=== PATIENT | female | born 1995 | race Caucasian/White ===

== ENCOUNTER → 2021-11-07 | Outpatient (CLI) | payer BC ==
[~2021-11-07] MED LIST: CALCIUM CARBON650 M2; MOTRIN 800800 MG/TAB PO; PRENATAL TABLET PO; PROFERRIN ES12 MG PO
== END ==
LOC: DIA.ED 10-24 08:23 → DIA.EDTELE 11:50
DX: O24.419 Gestational diabetes mellitus in pregnancy, unspecified control (principal)
CPT/HCPCS: G0108

== ENCOUNTER 2021-12-14 03:39 | Inpatient (IN) | payer BC ==
[~2021-12-14] VITALS: Ht 157.5 cm; Wt 62.7 kg
[2021-12-14] VITALS (17 sets, daily range): BP systolic 110–135; BP diastolic 56–86; PULSE 77–106; TEMP 97.7–98.2
--- NOTE | 2021-12-14 05:10 | NUR ---
0345- 26 YO, , 39.5 COMES TO OB UNIT, AMBULATORY, ACCOMPANIED BY SPOUSE. PT C/O CTX. REPORTS +FM, +CTX, -LOF, -VB. 0356- EFM AND TOCO APPLIED. 0400- PT RATES PAIN 6/10 W/ CTX. AFEBRILE.VSS. SVE 5-6/80/-2 W/ A BULGING BAG. 0405- DR. PEREIRA ON THE UNIT AND GIVEN REPORT ON PT. PT IS GDM- DIET CONTROLLED. ORDERS REC'D TO ADMIT PT FOR LABOR AND CHECK BLOOD SUGARS EVERY 2 HOURS. 0434- ACCUCHECK 86 0440- CONSENTS REVIEWED AND SIGNED WITH PT AND SPOUSE. ALL QUESTIONS ANSWERED. 0500- LT FA #[phone] IV START BY THIS RN. LABS DRAWN WITH IV START AND SALINE LOCKED. PT TOLERATED WELL W/O ANY COMPLICATIONS. 0505- MONITORS REMOVED AND PT AMBULATING AROUND ROOM. H20 JUG FILLED. 0540- EFM AND TOCO REAPPLIED. PT BOUNCING ON BIRTHING BALL. SPOUSE REMAINS AT BS. PT DENIES ANY ADDITIONAL NEEDS AT THIS TIME.
[2021-12-14 05:14] LABS: BASO % 0.3 % (0.0-2.0); EOS % 0.3 % (0.0-4.0); GRAN # 9.4 K/mm3 (1.4-6.5); HEMATOCRIT 37.3 % (37.0-47.0); HEMOGLOBIN 12.3 g/dl (12.5-16.0); LYMPH # 1.8 K/mm3 (1.2-3.4); LYMPH % 14.7 % (20.0-51.0); MEAN CELL VOLUME 89 fl (80.0-100.0); MEAN CORPUSCULAR HEMOGLOBIN 29 pg (27-31); MEAN CORPUSCULAR HGB CONC 33 g/dl (33.0-37.0); MEAN PLATELET VOLUME 10.9 fl (7.4-10.4); MONO # 0.6 K/mm3 (0.1-0.6); MONO % 5.2 % (1.7-9.3); PLATELET COUNT 267 K/mm3 (130-400); RED BLOOD COUNT 4.18 M/mm3 (4.10-5.30); REDCELL DISTRIBUTION WIDTH-CV 14.7 % (11.5-14.5)
--- NOTE | 2021-12-14 07:37 | NUR ---
0737Dr. Ren to bedside. AROM by provider for moderate amount of clear fluid. SVE 7cm. Plan of care reviewed. 0817SVE C/+[address] Ren on unit and notified. 0820Dr. Ren to bedside for delivery. Patient begins to push with contractions with Dr. Ren at bedside. Strong maternal effort. Moves vertex well. 0828Local inj by Dr. Ren, see EMAR. MLE by Dr. Ren. 0830Spontaneous vaginal delivery of viable male infant. [place] to mother's chest where dried and stimulated by nursery RN. 0832Cord clamped x2 and cut by father of . Care of assumed by Ryan Real RN. 0833Spontaneous and intact delivery of placenta. Pitocin to 333ml/hr per protocol. See emar. MLE with 2nd degree tear repaired by Dr. Ren. Varsha care provided, pads changed, and ice pack to perineum. Plan of care reviewed. See doctor dictation, anesthesia record, and nurses notes.
[2021-12-14] MEDS ORDERED: MOTRIN 800800 MG/TAB PO (16:33)
--- NOTE | 2021-12-14 20:31 | NUR ---
PATIENT VISITING WITH PRESENT IN ROOM NO COMPLAINTS OF PAIN AT THIS TIME ENCOURAGED TO USE ICE PACKS FOR HEMATOMA NOTED TO [facility]
[2021-12-15 04:00] VITALS: BP 116/80; PULSE 85; TEMP 98.1
[2021-12-15 07:30] VITALS: BP 112/53; PULSE 90; TEMP 98.3
--- NOTE | 2021-12-15 11:13 | NUR ---
Initial visit; Parents thanked Corporate Sales Trainer for offering congratulations and God's blessings for the of their son. Corporate Sales Trainer thanked Family for choosing [facility].
== END 2021-12-15 13:20 | disposition home or self-care (01) | DRG 807 ==
LOC: LDRO 03:39 → LDR 04:11 → OB 10:53
PROVIDERS: Obstetrics & Gynecology; ADMIT Obstetrics & Gynecology
PROC: 10E0XZZ Delivery of Products of Conception, External Approach (ICD-10-PCS; principal; 2021-12-14)
PROC: 0W8NXZZ Division of Female Perineum, External Approach (ICD-10-PCS; 2021-12-14)
PROC: 10907ZC Drainage of Amniotic Fluid, Therapeutic from Products of Conception, Via Natural or Artificial Opening (ICD-10-PCS; 2021-12-14)
DX: O24.420 Gestational diabetes mellitus in childbirth, diet controlled (principal); Z37.0 Single live birth; Z3A.39 39 weeks gestation of pregnancy
CPT/HCPCS: J2590

== ENCOUNTER 2023-10-23 17:56 | Inpatient (IN) | payer OTHER ==
[~2023-10-23] VITALS: Ht 157.5 cm; Wt 59.1 kg
[2023-10-23] VITALS (15 sets, daily range): BP systolic 107–151; BP diastolic 56–77; PULSE 78–99; TEMP 98.8–98.9
[2023-10-23] MEDS ORDERED: PROBIOTIC BLEN1 EACH PO (18:29)
[2023-10-23 19:38] LABS: BASO % 0.3 % (0.0-2.0); EOS % 0.1 % (0.0-4.0); GRAN # 10.9 K/mm3 (1.4-6.5); GRAN % 81.8 % (42.2-75.2); HEMATOCRIT 43.6 % (37.0-47.0); HEMOGLOBIN 14.3 g/dl (12.5-16.0); LYMPH # 1.5 K/mm3 (1.2-3.4); LYMPH % 11.4 % (20.0-51.0); MEAN CELL VOLUME 90 fl (80.0-100.0); MEAN CORPUSCULAR HEMOGLOBIN 30 pg (27-31); MEAN CORPUSCULAR HGB CONC 33 g/dl (33.0-37.0); MEAN PLATELET VOLUME 11.2 fl (7.4-10.4); MONO # 0.8 K/mm3 (0.1-0.6); PLATELET COUNT 300 K/mm3 (130-400); RED BLOOD COUNT 4.85 M/mm3 (4.10-5.30); REDCELL DISTRIBUTION WIDTH-CV 14.8 % (11.5-14.5)
--- NOTE | 2023-10-23 20:45 | NUR ---
1957- DR. JOHANSEN AT BEDSIDE. EDUCATES PATIENT ON POSSIBLE AROM. PATIENT AGREES. 1999- AROM BY DR. JOHANSEN. SVE 7-/0. 2014- PATIENT STATED SHE FELT INCREASE IN PELVIC PRESSURE. SVE 8-/+1. 2019- PATIENT SPOUSE CAME TO NURSES DESK STATING PATIENT FELT LIKE SHE NEEDED TO PUSH. 2020- DR. JOHANSEN AT BEDSIDE. SVE COMPLETE. BED BROKEN DOWN FOR DELIVERY. PATIENT BEGINS PUSHING WITH CONTRACTIONS. 2029- SPONTANEOUS VAGINAL DELIVERY OF VIABLE BABY GIRL. CORD CLAMPED AND CUT BY FOB. BABY TO MOTHERS ABDOMEN. DRIED AND STIMULATED. SPONTANEOUS CRY NOTED. BABY CARES ASSUMED BY Julia NAILS RN. 2034- SPONTANEOUS DELIVERY OF INTACT PLACENTA THROUGH 2ND DEGREE LACERATION. PITOCIN STARTED AT 333ML/HR PER PROTOCOL. DR. JOHANSEN BEGINS REPAIR OF LACERATION. 2044- RECOVERY STARTED.
--- NOTE | 2023-10-23 23:09 | NUR ---
2245- PATIENT SITTING ON EDGE OF BED. DENIES FEELING LIGHT HEADED. PATIENT AMBULATORY TO RESTROOM FOLLOWING DELIVERY. PERICARE PROVIDED. HOSPTIAL GOWN CHANGED. PATIENT ABLE TO VOID WITHOUT DIFFICULTY. MESH UDNERWEAR AND PAD ON. 2255- PATIENT AMBULATORY TO ROOM. PATIENT ORIENTED TO ROOM, PLAN OF CARE. DENIES NEED FOR PAIN MEDICATION. QUESTIONS ENCOURAGED AND ANSWERED.
[2023-10-24 03:21] VITALS: BP 107/67; PULSE 80; TEMP 98.2
[2023-10-24] MEDS ORDERED: MOTRIN 800800 MG/TAB PO (07:23)
[2023-10-24 08:40] VITALS: BP 106/72; PULSE 71; TEMP 98
--- NOTE | 2023-10-24 09:35 | NUR ---
Initial visit attempt; Family resting, Auto Technician left card offering congratulations and God's blessings for the of their daughter and information regarding the availability of Spritual Care at our hospital.
[2023-10-24 17:10] VITALS: BP 114/76; PULSE 76; TEMP 98.1
[2023-10-24 20:00] VITALS: BP 112/76; PULSE 87; TEMP 97.4
[2023-10-25 05:00] VITALS: BP 109/73; PULSE 76; TEMP 97.4
[2023-10-25 07:33] VITALS: BP 107/77; PULSE 80; TEMP 98.7
== END 2023-10-25 09:20 | disposition home or self-care (01) | DRG 807 ==
LOC: LDRO 17:56 → LDR 20:07 → OB 23:20
PROVIDERS: ADMIT Obstetrics & Gynecology
PROC: 10E0XZZ Delivery of Products of Conception, External Approach (ICD-10-PCS; principal; 2023-10-23)
PROC: 0KQM0ZZ Repair Perineum Muscle, Open Approach (ICD-10-PCS; 2023-10-23)
DX: O24.420 Gestational diabetes mellitus in childbirth, diet controlled (principal); Z37.0 Single live birth; Z3A.38 38 weeks gestation of pregnancy; O70.1 Second degree perineal laceration during delivery; Z23 Encounter for immunization
CPT/HCPCS: J2590; J7120